=== PATIENT | female | born 1970 | race Caucasian/White ===

== ENCOUNTER 2017-10-16 10:25 | Outpatient (CLI) | payer BC | END 2017-10-16 10:26 | disposition home or self-care (01) | LOC: CTENTCT 10:25 | PROVIDERS: ATTEND Otolaryngology Plastic Surgery within the Head & Neck | DX: J32.8 Other chronic sinusitis (principal) | CPT/HCPCS: 70486 ==

== ENCOUNTER 2017-10-27 17:30 | Outpatient (CLI) | payer BC | END 2017-10-27 17:31 | disposition home or self-care (01) | LOC: SLEEPLAB 17:30 | PROVIDERS: ATTEND Otolaryngology Plastic Surgery within the Head & Neck | DX: G47.33 Obstructive sleep apnea (adult) (pediatric); R06.83 Snoring | CPT/HCPCS: 95806 ==

== ENCOUNTER 2018-03-10 14:43 | Outpatient (CLI) | payer BC | END 2018-03-10 14:44 | disposition home or self-care (01) | LOC: CTENTCT 14:43 | PROVIDERS: ATTEND Otolaryngology Plastic Surgery within the Head & Neck | DX: J32.8 Other chronic sinusitis (principal) | CPT/HCPCS: 70486 ==